=== PATIENT | male | born 1970 | race Two or more races ===

== ENCOUNTER 2021-11-03 16:15 | Inpatient (IN) | payer OTHER ==
[2021-11-03 17:22] VITALS: BMI 19.6
[2021-11-03] MEDS ORDERED: MENTHOL/PHENOL 1 EACH UD MM PRN (18:45)
[2021-11-03] MEDS ORDERED: MAG HYDROX/AL HYDROX/SIMETH 30 ML UNIT-DOSE CUP PO PRN (18:45)
[2021-11-03] MEDS ORDERED: IBUPROFEN 400 MG TABLET (FP) PO PRN (18:45)
[2021-11-03] MEDS ORDERED: ACETAMINOPHEN 325 MG TABLET (FP) PO PRN ×2 (18:45)
[2021-11-03] MEDS ORDERED: MAGNESIUM HYDROX 2400MG/30ML ORAL SUSPENSION 30 ML CUP PO PRN (18:45)
[2021-11-03] MEDS ORDERED: ONDANSETRON *ODT* 4 MG TABLET SL PRN (18:45)
[2021-11-03] MEDS ORDERED: METHOCARBAMOL 500 MG TABLET PO PRN (18:45)
[2021-11-03] MEDS ORDERED: MAGNESIUM CITRATE 300 ML BOTTLE PO PRN (18:45)
[2021-11-03] MEDS ORDERED: BISMUTH SUBSALICYLATE 524 MG/30 ML PO PRN (18:45)
[2021-11-03] MEDS ORDERED: LORazepam 1 MG TABLET PO PRN (18:45)
[2021-11-03] MEDS ORDERED: NICOTINE 10 MG CARTRIDGE (INHALER) IH PRN (18:45)
[2021-11-03] MEDS: NICOTINE POLACRILEX 2 MG GUM BUC PRN (20:47)
[2021-11-03] MEDS ORDERED: THIAMINE HCL 100 MG TABLET (FP) PO SCH (22:00)
[2021-11-03] MEDS ORDERED: MELATONIN 5 MG TABLETS PO SCH (22:00)
[2021-11-03] MEDS: hydrOXYzine PAMOATE 25 MG CAPSULE (FP) PO SCH (22:32)
[2021-11-03] MEDS: LORazepam 2 MG TABLET PO SCH (22:32)
[2021-11-03] MEDS: CEPHALEXIN MONOHYDRATE 500 MG CAPSULE (UD) PO SCH (22:50)
[2021-11-04] MEDS: LORazepam 2 MG TABLET PO SCH ×3 (05:59→18:46)
[2021-11-04] MEDS: hydrOXYzine PAMOATE 25 MG CAPSULE (FP) PO SCH ×4 (05:59→18:46)
[2021-11-04] MEDS: NICOTINE POLACRILEX 2 MG GUM BUC PRN ×2 (06:01→10:29)
[2021-11-04] MEDS ORDERED: NICOTINE 21 MG/24 HOURS TOPICAL PATCH TD SCH (10:00)
[2021-11-04] MEDS ORDERED: PANTOPRAZOLE 20 MG TABLET PO SCH (10:00)
[2021-11-04] MEDS ORDERED: PRENATAL VITAMINS W/ FOLIC ACID TABLET (FP) PO SCH (10:00)
[2021-11-04] MEDS: CEPHALEXIN MONOHYDRATE 500 MG CAPSULE (UD) PO SCH (10:24)
[2021-11-04] MEDS ORDERED: SERTRALINE HCL 50 MG TABLET (FP) PO SCH (11:45)
[2021-11-04 12:14] LABS: ALBUMIN 3.3 g/dl (3.4-5.0); BLOOD UREA NITROGEN 6.8 mg/dL (7-18); CALCIUM 8.7 mg/dL (8.5-10.1)
[2021-11-04 12:17] LABS: CREATININE 0.8 mg/dL (0.55-1.3)
[2021-11-04 12:19] LABS: BILIRUBIN,TOTAL 0.6 mg/dL (0.2-1); TOT PROT 6.7 g/dl (6.4-8.2)
[2021-11-04 12:19] LABS: HEMATOCRIT 39.3 % (35.4-49); HEMOGLOBIN 12.9 GM/dL (11.7-16.9); MCHC 32.7 g/dl (32.0-35.9); MEAN CELL VOLUME 94.8 fl (80-96); MEAN PLT VOLUME 8.5 fl (7.5-11.1); PLATELET COUNT 183 10^3/uL (134-434); RBC 4.15 M/mm3 (4.00-5.60); RDW 14.8 % (11.9-15.9); WHITE BLOOD COUNT 6.1 K/mm3 (4.0-10.0)
[2021-11-04] MEDS: PATIENT,S OWN MED:CEPHALEXIN MONOHYDRATE 500 MG CAPSULE (UD) PO SCH ×2 (15:35→18:47)
[2021-11-04 18:10] VITALS: BP 122/72; PULSE 91; TEMP 97.8
[2021-11-05] MEDS ORDERED: LORazepam 1 MG TABLET PO SCH (05:00)
[2021-11-05] MEDS ORDERED: PNEUMOC 13-VAL CONJ-DIP CRM/PF 0.5 ML DISP.SYRIN IM ONE (12:00)
[2021-11-05] MEDS ORDERED: PNEUMOCOCCAL 23 VACCINE 0.5 ML VIAL IM ONE (12:00)
[2021-11-05] MEDS ORDERED: FLU VACC QS2021-22(6MOS UP)/PF 60 MCG/0.5 ML SYRINGE IM ONE (12:00)
[2021-11-06] MEDS ORDERED: LORazepam 0.5 MG TABLET PO PRN
[2021-11-06] MEDS ORDERED: LORazepam 0.5 MG TABLET PO SCH (05:00)
[2021-11-07] MEDS ORDERED: LORazepam 0.5 MG TABLET PO ONE (05:00)
== END 2021-11-04 19:50 | disposition left against medical advice (07) | DRG 770 ==
LOC: YASAS 16:15 → Y3N 19:32
PROVIDERS: ADMIT Allergy & Immunology; ATTEND Allergy & Immunology
PROC: HZ2ZZZZ Detoxification Services for Substance Abuse Treatment (ICD-10-PCS; principal; 2021-11-03)
DX: F10.230 Alcohol dependence with withdrawal, uncomplicated (principal); F11.20 Opioid dependence, uncomplicated; F17.210 Nicotine dependence, cigarettes, uncomplicated; F43.10 Post-traumatic stress disorder, unspecified; F41.9 Anxiety disorder, unspecified; Z62.810 Personal history of physical and sexual abuse in childhood; Z87.19 Personal history of other diseases of the digestive system; Z91.040 Latex allergy status
CPT/HCPCS: 36415; 80053; 85027; 86780; C9803; U0003; U0005